=== PATIENT | male | born 1990 | race Caucasian/White ===

== ENCOUNTER 2018-08-07 15:19 | Emergency (ER) | payer SELFPAY ==
[~2018-08-07] VITALS: Ht 172.7 cm; Wt 89.8 kg
[2018-08-07 15:36] VITALS: BP 142/86
--- NOTE | 2018-08-07 17:05 | NUR ---
PT AMBULATED TO BED 07.
[2018-08-07 17:10] VITALS: BP 140/84
--- NOTE | 2018-08-07 17:10 | NUR ---
BIB SELF. AAOX4. C/O DIZZINESS X TODAY. PT STATES "WHEN I WALK I DON'T FEEL DIZZY, BUT WHEN I SIT DOWN THE ROOM FEELS LIKE SPINNING." PERRLA, BRISK 3 MM. CLEAR SPEECH. TERE EQUAL STRENGTH TO UPPER AND LOWER EXTREMITIES. STEADY GAIT. DENIES N/V/D. HOB UP. BED SIDE RAILS UP X1. ON LOW BED POSITION, LOCKED. ER MADE AWARE OF PT STATUS.
--- NOTE | 2018-08-07 18:31 | NUR ---
PATIENT STATED HE DOES NOT WANT TO WAIT ANY LONGER. STATED HE FEELS MUCH BETTER,DENIES DIZZINESS. AMBULATED IN STEADY GAIT. DR. ARIELA JOHNSON.
== END 2018-08-07 18:31 | disposition left against medical advice (07) ==
LOC: MED 15:19
DX: R42 Dizziness and giddiness (principal); R11.2 Nausea with vomiting, unspecified; R19.7 Diarrhea, unspecified; Z53.21 Procedure and treatment not carried out due to patient leaving prior to being seen by health care provider